=== PATIENT | female | born 1990 | race Caucasian/White ===

== ENCOUNTER → 2023-10-11 08:03 | Outpatient (REF) | payer BC, SELFPAY | LOC: PNTC 08:03 | PROVIDERS: ATTENDING PHYSICIAN Advanced Practice Midwife | DX: O14.90 Unspecified pre-eclampsia, unspecified trimester (principal) | CPT/HCPCS: 59025; 76816 ==

== ENCOUNTER → 2023-10-18 14:30 | Outpatient (REF) | payer BC, SELFPAY | LOC: PNTC 14:30 | PROVIDERS: ATTENDING PHYSICIAN Obstetrics & Gynecology | DX: O99.210 Obesity complicating pregnancy, unspecified trimester (principal); Z87.59 Personal history of other complications of pregnancy, childbirth and the puerperium | CPT/HCPCS: 59025; 76815 ==

== ENCOUNTER → 2023-10-26 10:49 | Outpatient (REF) | payer BC, SELFPAY | LOC: PNTC 10:49 | PROVIDERS: ATTENDING PHYSICIAN Obstetrics & Gynecology | DX: Z87.59 Personal history of other complications of pregnancy, childbirth and the puerperium (principal); O99.210 Obesity complicating pregnancy, unspecified trimester | CPT/HCPCS: 59025; 76815 ==

== ENCOUNTER → 2023-11-02 09:50 | Outpatient (REF) | payer BC, SELFPAY | LOC: PNTC 09:50 | PROVIDERS: ATTENDING PHYSICIAN Obstetrics & Gynecology | DX: Z87.59 Personal history of other complications of pregnancy, childbirth and the puerperium (principal); O99.210 Obesity complicating pregnancy, unspecified trimester | CPT/HCPCS: 59025; 76815 ==

== ENCOUNTER → 2023-11-09 09:50 | Outpatient (REF) | payer BC, SELFPAY | LOC: PNTC 09:50 | PROVIDERS: ATTENDING PHYSICIAN Obstetrics & Gynecology | DX: O99.210 Obesity complicating pregnancy, unspecified trimester (principal); Z87.51 Personal history of pre-term labor | CPT/HCPCS: 59025; 76816 ==

== ENCOUNTER 2023-11-15 05:34 | Inpatient (IN) | payer BC, SELFPAY ==
[2023-11-15 06:17] VITALS: BP 137/76; BMI 36.7
[2023-11-15 06:37] LABS: Hematocrit 32.6 % (37.0-47.0); Hemoglobin 10.5 g/dL (12.0-16.0); Mean Corp Hgb Conc. 32.2 g/dL (33.0-37.0); Mean Corpuscular Hgb 27.8 pg (27.0-31.0); Mean Corpuscular Volume 86.2 fL (81.0-99.0); Mean Platelet Volume 10.1 fL (7.4-10.4); Platelet Count 252 10^3/uL (130-400); Red Blood Cell Count 3.78 10^6/uL (4.20-5.40); White Blood Cell Count 11.2 10^3/uL (4.8-10.8)
[2023-11-15] MEDS: TYLENOL 1000 MG PO (06:56)
[2023-11-15] MEDS: LR 1000 IV (06:56)
[2023-11-15] MEDS: ANCEF 10 IV (07:25)
[2023-11-15] MEDS: BICITRA 30 ML PO (07:25)
[2023-11-15] MEDS: TORADOL 15 MG IV ×2 (14:52→20:50)
[2023-11-15] MEDS: ZOFRAN 4 MG IV (18:04)
[2023-11-16] MEDS: TORADOL 15 MG IV ×2 (02:41→08:39)
[2023-11-16 05:08] LABS: Hematocrit 29.4 % (37.0-47.0); Hemoglobin 9.5 g/dL (12.0-16.0); Mean Corp Hgb Conc. 32.3 g/dL (33.0-37.0); Mean Corpuscular Hgb 27.7 pg (27.0-31.0); Mean Corpuscular Volume 85.7 fL (81.0-99.0); Mean Platelet Volume 9.9 fL (7.4-10.4); Platelet Count 214 10^3/uL (130-400); Red Blood Cell Count 3.43 10^6/uL (4.20-5.40); Red Cell Dist. Width 14.2 % (11.5-14.5); White Blood Cell Count 16.8 10^3/uL (4.8-10.8)
--- NOTE | 2023-11-16 08:18 | W.PN.ANS.POP ---
Anesthesia Post Operative
- Anesthesia Post Op Note
Vital Signs Stable-See Nursing Note: Yes
Airway Patent: Yes
Adequate Pain Control: Yes
Change in Mental Status: No
Current Postoperative Nausea & Vomiting: No
Anesthesia Complications: No
General Anesthetic Recall: No
Unplanned Admission: No
Post Op Hydration Adequate: Yes
[2023-11-16] MEDS: SENOKOT-S 1 TABLET PO (12:41)
[2023-11-16] MEDS: TYLENOL 650 MG PO ×2 (12:41→20:46)
[2023-11-16] MEDS: MOTRIN 600 MG PO (15:01)
[2023-11-17] MEDS: MOTRIN 600 MG PO ×2 (00:25→09:33)
[2023-11-17] MEDS: TYLENOL 650 MG PO (09:33)
--- NOTE | 2023-11-17 12:03 | W.DS.TRANS ---
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
-
Discharge Instructions:
Instructions:
Stand-Alone Forms:
Changes to Home Medications: No
Discharge Medications:
DC Medications w/original date entered in [employer]
No Meds [No Current Medications] 11/15/23
Home Medication Changes
Pending Results: No
Total time spent discharging patient (in min): 20
[2023-11-18 12:39] LABS: Syphilis/T. pallidum Ab Reflex Negative (Negative)
== END 2023-11-17 14:50 | disposition home or self-care (01) | DRG 788 ==
LOC: LDRP 05:34
PROVIDERS: Obstetrics & Gynecology; ADMITTING PHYSICIAN Obstetrics & Gynecology; OTHER PHYSICIAN Advanced Practice Midwife
PROC: 10D00Z1 Extraction of Products of Conception, Low, Open Approach (ICD-10-PCS; 2023-11-15)
DX: O34.211 Maternal care for low transverse scar from previous cesarean delivery (principal); Z37.0 Single live birth; Z3A.39 39 weeks gestation of pregnancy; D25.2 Subserosal leiomyoma of uterus; O34.13 Maternal care for benign tumor of corpus uteri, third trimester; O99.824 Streptococcus B carrier state complicating childbirth; D50.0 Iron deficiency anemia secondary to blood loss (chronic); O99.02 Anemia complicating childbirth
CPT/HCPCS: 85027; 86780; 86850; 86900; 86901